=== PATIENT | female | born 1970 | race American Indian/Alaskan Native ===

== ENCOUNTER 2016-10-14 14:02 | Emergency (ER) | payer SELFPAY ==
[2016-10-14 14:48] LABS: Basophils % (Auto) 0.7 % (0.0-1.8); Eosinophils % (Auto) 1.6 % (0.0-4.3); Hematocrit 34.7 % (30.3-42.9); Mean Corpuscular HGB Conc 32 % (30-34); Mean Corpuscular Hemoglobin 28 pg (28-32); Mean Corpuscular Volume 88 fl (79-97); Platelet Count 395 K/mm3 (140-440); Red Blood Count 3.93 M/mm3 (3.65-5.03); Red Cell Distribution Width 16.8 % (13.2-15.2); White Blood Count 7.5 K/mm3 (4.5-11.0)
[2016-10-14 15:06] LABS: Anion Gap 20 mmol/L; Blood Urea Nitrogen 8 mg/dL (7-17); Calcium 9.5 mg/dL (8.4-10.2); Carbon Dioxide 18 mmol/L (22-30); Chloride 105.4 mmol/L (98-107); Glucose 105 mg/dL (65-100); Potassium 3.6 mmol/L (3.6-5.0); Sodium 140 mmol/L (137-145)
[2016-10-14] MEDS ORDERED: NACL 0.9% 1000 ML 1,000 ML IV ONE (16:01)
[2016-10-14] MEDS ORDERED: TORADOL IV ONE (16:01)
[2016-10-14] MEDS ORDERED: ZOFRAN IV ONE ×2 (16:01→18:47)
--- NOTE | 2016-10-14 16:46 | XRay Report ---
AP CHEST: History: Chest pain. AP view of the chest demonstrates a normal mediastinal and cardiac contour with clear lungs and normal bony and soft tissue structures. IMPRESSION: Normal AP chest.
[2016-10-14] MEDS ORDERED: ALUM-MAG HYDROX-SIMETH 200-200-20MG/5ML ONE (17:08)
[2016-10-14] MEDS ORDERED: LIDOCAINE VISCOUS 2% ONE (17:08)
[2016-10-14 17:09] LABS: Creatine Kinase MB < 1.0 ng/mL (0.0-4.0)
[2016-10-14 17:10] LABS: Alanine Aminotransferase 17 units/L (7-56); Albumin 3.8 g/dL (3.9-5); Alkaline Phosphatase 228 units/L (35-129); Anion Gap 21 mmol/L; Blood Urea Nitrogen 9 mg/dL (7-17); Calcium 9.4 mg/dL (8.4-10.2); Carbon Dioxide 19 mmol/L (22-30); Chloride 104.7 mmol/L (98-107); Creatine Kinase 65 units/L (30-135); Glucose 107 mg/dL (65-100); Potassium 4.2 mmol/L (3.6-5.0); Sodium 140 mmol/L (137-145); Total Protein 7.5 g/dL (6.3-8.2)
[2016-10-14] MEDS ORDERED: LIDOCAINE VISCOUS 2% PO ONE (17:12)
[2016-10-14] MEDS ORDERED: ALUM-MAG HYDROX-SIMETH 200-200-20MG/5ML PO ONE (17:12)
[2016-10-14 17:47] LABS: INR 1.04 (0.87-1.13); Partial Thromboplastin Time 30.6 Sec. (24.2-36.6)
[2016-10-14] MEDS ORDERED: ZOFRAN ONE (18:39)
[2016-10-14] MEDS ORDERED: MORPHINE ONE (18:39)
[2016-10-14] MEDS ORDERED: MORPHINE IV ONE (18:47)
--- NOTE | 2016-10-14 19:03 | Emergency Department Report ---
ED Chest Pain HPI - General Chief Complaint: Chest Pain Stated Complaint: CP/BLURRED VISION/HEAD THROBBING Time Seen by Provider: 10/14/16 16:00 Source: patient Mode of arrival: Ambulatory Limitations: No Limitations - History of Present Illness MD Complaint: chest pain Onset/Timin -: Gradual, month(s) Onset: during rest Pain Location: epigastric (feels like indigestion) Pain Radiation: none Severity scale (0 -10): 10 Quality: dull Consistency: intermittent (lasting seconds at a time) Improves With: antacids Worsens With: nothing re: denies: nausea, vomting, diaphoresis, dyspnea, sense of impending doom Other Symptoms: acid taste in mouth, burping. denies: cough, fever, syncope, rash, leg swelling, palpitations Treatments Prior to Arrival: none - Related Data Previous Rx's Medication Instructions Recorded Last Taken Type Esomeprazole Magnesium [NexIUM] 20 mg PO QDAY #20 cap 10/14/16 Unknown Rx HYDROcodone/APAP 5-325 [Saxon 1 each PO BID PRN #12 tablet 10/14/16 Unknown Rx 5/325] Allergies Allergy/AdvReac Type Severity Reaction Status Date / Time hydromorphone HCl AdvReac Itching Verified 10/14/16 14:20 [From Dilaudid] NSAIDS (Non-Steroidal AdvReac Vomiting Verified 10/14/16 14:20 Anti-Inflamma JONO score - Jono Score Age > 65: (0) No Aspirin use within the Past 7 Days: (0) No 3 or more CAD Risk Factors: (0) No 2 or more Angina events in past 24 hrs: (0) No Known CAD with more than 50% Stenosis: (0) No Elevated Cardiac Markers: (0) No ST Deviation Greater than 0.5mm: (0) No JONO Score: 0 ED Review of Systems ROS: Stated complaint: CP/BLURRED VISION/HEAD THROBBING Other details as noted in HPI Comment: All other systems reviewed and negative ED Past Medical Hx - Past Medical History Hx Hypertension: Yes (diet-controlled) - Surgical History Hx Cholecystectomy: Yes (open surgery due to rupture of the gallbladder) Hx Appendectomy: Yes Hx Breast Surgery: Yes (BREAST REDUCTION / LIFT) Additional Surgical History: hysterectomy. "TUMMY TUCK" - Social History Smoking Status: Current Some Day Smoker Substance Use Type: None - Medications Home Medications: Home Medications Medication Instructions Recorded Confirmed Last Taken Type Esomeprazole Magnesium [NexIUM] 20 mg PO QDAY #20 cap 10/14/16 Unknown Rx HYDROcodone/APAP 5-325 [Saxon 1 each PO BID PRN #12 tablet 10/14/16 Unknown Rx 5/325] ED Physical Exam - General Limitations: No Limitations General appearance: alert, in no apparent distress - Head Head exam: Present: atraumatic, normocephalic - Eye Eye exam: Present: normal appearance - ENT ENT exam: Present: mucous membranes moist - Neck Neck exam: Present: normal inspection - Respiratory Respiratory exam: Present: normal lung sounds bilaterally. Absent: respiratory distress - Cardiovascular Cardiovascular Exam: Present: regular rate, normal rhythm. Absent: systolic murmur, diastolic murmur, rubs, gallop - GI/Abdominal GI/Abdominal exam: Present: soft, normal bowel sounds - Extremities Exam Extremities exam: Present: normal inspection - Back Exam Back exam: Present: normal inspection - Neurological Exam Neurological exam: Present: alert, oriented X3 - Psychiatric Psychiatric exam: Present: normal affect, normal mood - Skin Skin exam: Present: warm, dry, intact, normal color. Absent: rash ED Course Vital Signs 10/14/16 10/14/16 10/14/16 14:23 15:33 15:44 Temperature 98.3 F Pulse Rate 100 H 103 H 92 H Respiratory 20 30 H 18 Rate Blood Pressure 158/93 Blood Pressure 151/80 [Right] O2 Sat by Pulse 100 100 100 Oximetry 10/14/16 10/14/16 18:02 18:49 Temperature Pulse Rate 88 88 Respiratory 18 18 Rate Blood Pressure Blood Pressure 133/73 135/79 [Right] O2 Sat by Pulse 100 100 Oximetry ED Medical Decision Making - Lab Data Result diagrams: 10/14/16 14:35 10/14/16 16:33 - EKG Data EKG shows normal: sinus rhythm - EKG Data Interpretation: no acute changes, LVH - Radiology Data Radiology results: report reviewed, image reviewed - Medical Decision Making patient pain free at this time , cxr and ekg non diagnostic , lasb negative , two sets of enzymes negative too. offered admission but she rather go home , she will follow up with her PMD. Critical care attestation.: If time is entered above; I have spent that time in minutes in the direct care of this critically ill patient, excluding procedure time. ED Disposition Clinical Impression: Chest pain, Epigastric abdominal pain Disposition: DISCHARGED TO HOME OR SELFCARE Is pt being admited?: No Does the pt Need Aspirin: No Condition: Good Instructions: Chest Pain (ED) Prescriptions: Esomeprazole Magnesium [NexIUM] 20 mg PO QDAY #20 cap HYDROcodone/APAP 5-325 [Saxon 5/325] 1 each PO BID PRN #12 tablet PRN Reason: Pain Referrals: PRIMARY CARE, [Primary Care Provider] - 3-5 Days Time of Disposition: 19:03
[2016-10-14 20:04] VITALS: BP 136/77
== END 2016-10-14 20:03 | disposition home or self-care (01) ==
LOC: ED 14:02
DX: R10.13 Epigastric pain (principal); R07.9 Chest pain, unspecified; I10 Essential (primary) hypertension; F17.200 Nicotine dependence, unspecified, uncomplicated; Z90.49 Acquired absence of other specified parts of digestive tract; Z90.710 Acquired absence of both cervix and uterus; Z88.8 Allergy status to other drugs, medicaments and biological substances
CPT/HCPCS: 36415; 71010; 80048; 80053; 82550; 82553; 84484; 85025; 85610; 85730; 93005; 93010; 96375; 96376; 99285; J1885; J2270; J2405